=== PATIENT | male | born 1965 | race Caucasian/White ===

== ENCOUNTER 2021-10-31 21:49 | Emergency (ER) | payer OTHER ==
[~2021-10-31] VITALS: Ht 165.1 cm; Wt 65.8 kg
--- NOTE | 2021-10-31 22:05 | NUR ---
Marilee MOMIN AT BEDSIDE, MSE IN PROGRESS.
[2021-10-31] MEDS ORDERED: ONDANSETRON ODT 4 MG TAB.RAPDIS SL ONE (22:15)
[2021-10-31] MEDS ORDERED: CYCLOBENZAPRINE HCL 10 MG TABLET ONE (22:15)
[2021-10-31] MEDS ORDERED: CYCLOBENZAPRINE HCL 10 MG TABLET PO ONE (22:15)
[2021-10-31] MEDS ORDERED: HYDROCODONE/APAP 10-325 MG TABLET PO ONE (22:15)
[2021-10-31] MEDS ORDERED: ONDANSETRON ODT 4 MG TAB.RAPDIS ONE (22:15)
[2021-10-31] MEDS ORDERED: HYDROCODONE/APAP 10-325 MG TABLET ONE (22:16)
--- NOTE | 2021-10-31 22:21 | NUR ---
PT BEING TAKEN DOWN FOR CT.
--- NOTE | 2021-10-31 22:38 | NUR ---
PT RETURNED FROM CT.
[2021-10-31] MEDS ORDERED: CYCL10TA9 PO (23:08)
[2021-10-31] MEDS ORDERED: HYDR-4209 PO (23:08)
[2021-10-31 23:31] VITALS: BP 137/82
--- NOTE | 2021-10-31 23:31 | NUR ---
Patient discharged to home in stable condition. Written and verbal after care instructions given. Patient verbalizes understanding of instructions. Stressed follow up or return to ER for worsening s/s. Steady gait, denies any POON, dizzyness, no n/v. Denies any pain/discomcort upon discharge. Accompanied by family.
== END 2021-10-31 23:32 | disposition home or self-care (01) ==
LOC: ER 21:55
DX: S13.4XXA Sprain of ligaments of cervical spine, initial encounter (principal); V44.5XXA Car driver injured in collision with heavy transport vehicle or bus in traffic accident, initial encounter; Y92.410 Unspecified street and highway as the place of occurrence of the external cause; R51.9 Headache, unspecified; F17.210 Nicotine dependence, cigarettes, uncomplicated; R03.0 Elevated blood-pressure reading, without diagnosis of hypertension
CPT/HCPCS: 70450; 72125; A4663; Q0162